=== PATIENT | male | born 1960 | race Caucasian/White ===

== ENCOUNTER 2018-02-14 13:03 | Day surgery (SDC) | payer OTHER ==
[~2018-02-14 13:03] MED LIST: ceFAZolin 2 GM/SWFI 2 GM/20 ML SYR IVP ONE
[2018-02-14] MEDS ORDERED: LIDOCAINE 1% 2 ML INJ ID PRN (13:29)
[2018-02-14] MEDS ORDERED: LR 1,000 ML IV ONE (13:29)
[2018-02-14] MEDS ORDERED: fentaNYL 100 MCG/2 ML INJ ONE ×2 (14:12→14:50)
[2018-02-14] MEDS ORDERED: BUPIVACAINE 0.5% 30 ML SDV ONE ×2 (14:14→14:47)
--- NOTE | 2018-02-14 14:16 | PDHPUP ---
History & Physical Update H&P update statement: This history and physical update is based on an assessment of the patient which was completed after admission or registration (within 24 hours), but prior to the surgery/procedure. H&P update: H&P reviewed & patient examined, no change in patient's condition since H&P completed
--- NOTE | 2018-02-14 14:29 | PDANEPAE ---
ANE History of Present Illness 57 yo male with R heel plantar fascial fibromatosis. ANE Past Medical History - Cardiovascular History Hx Hypertension: No Hx Arrhythmias: No Hx Chest Pain: No Hx Coronary Artery / Peripheral Vascular Disease: No Hx CHF / Valvular Disease: Yes Hx Palpitations: No Cardiovascular History Comment: hx of mitral regurg - had an elective repair - Pulmonary History Hx COPD: No Hx Asthma/Reactive Airway Disease: No Hx Recent Upper Respiratory Infection: No Hx Oxygen in Use at Home: No Hx Sleep Apnea: Yes Sleep Apnea Screening Result - Last Documented: Positive Pulmonary History Comment: NANO W/CPAP - Neurologic History Hx Cerebrovascular Accident: No Hx Seizures: No Hx Dementia: No - Endocrine History Hx Diabetes: No Hypothyroid: No Hyperthyroid: No Obesity: mild - Renal History Hx Renal Disorders: No - Liver History Hx Hepatic Disorders: No - Neurological & Psychiatric Hx Hx Neurological and Psychiatric Disorders: No - Cancer History Hx Cancer: No - Congenital Disorder History Hx Congenital Disorders: No - GI History GERD: no Hx Gastrointestinal Disorders: No - Other Health History Other Health History: R ft plantar fascitis - Chronic Pain History Chronic Pain: Yes (R ft) - Surgical History Prior Surgeries: mitral valve repair 2007 ANE Review of Systems Review of systems is: negative Review of Systems: - Exercise capacity METS (RN): 4 METS ANE Patient History - Allergies Allergies/Adverse Reactions: No Allergies Allergy (Verified 02/13/18 15:58) - Home Medications Home Medications: NK [No Known Home Meds] 02/13/18 [Last Taken Unknown] - NPO status NPO Since - Liquids (Date): 02/14/18 NPO Since - Liquids (Time): 12:00 NPO Since - Solids (Date): 02/14/18 NPO Since - Solids (Time): 06:30 - Anes Hx Anes Hx: no prior problems - Smoking Hx Smoking Status: Never smoked - Family Anes Hx Family Anes Hx: neg - N/A ANE Labs/Vital Signs - Vital Signs Blood Pressure: 119/79 Heart Rate: 75 Respiratory Rate: 16 O2 Sat (%): 92 Height: 198.12 cm Weight: 117.934 kg ANE Physical Exam - Airway Neck exam: FROM Mallampati Score: Class 2 Mouth exam: normal dental/mouth exam - Pulmonary Pulmonary: clear to auscultation - Cardiovascular Cardiovascular: regular rate and rhythym - ASA Status ASA Status: II ANE Anesthesia Plan Anesthesia Plan: GA w LMA Regional Anesthesia: popliteal SNB (Later popliteal sciatic nerve block placed in pre-op PSR for POPC), POPC/PSR
[2018-02-14] MEDS ORDERED: ceFAZolin 2 GM/SWFI 20 ML SYR IVP ONE (14:37)
[2018-02-14] MEDS ORDERED: fentaNYL 100 MCG/2 ML INJ IVP ONE (14:45)
[2018-02-14] MEDS ORDERED: DEXAMETHASONE 4 MG/ML VIAL ONE ×2 (14:50)
[2018-02-14] MEDS ORDERED: PROPOFOL 200 MG/20 ML VIAL ONE (14:50)
[2018-02-14] MEDS ORDERED: LIDOCAINE 2% 5 ML SDV ONE (14:50)
[2018-02-14] MEDS ORDERED: ROPIVACAINE HCL 150 MG/30 ML INJ ONE (15:40)
--- NOTE | 2018-02-14 15:56 | POSTOPPROG ---
Post Op Note Date of Operation: 02/14/18 Surgeon: Jacky Damian Manager Forms: none Anesthesiologist: Cordero Anesthesia: GET(General Endotracheal) Pre-op Diagnosis: R plantar fascitiis Post-op Diagnosis: same Indication: above Procedure: R Barbara pimentel procedure Inf/Abcess present in the surg proc area at time of surgery?: No EBL: Minimal
[2018-02-14] MEDS ORDERED: NALOXONE HCL 0.4 MG/ML INJ IVP PRN ×2 (16:11)
[2018-02-14] MEDS ORDERED: ALBUTEROL 3 ML DEYVIAL IH PRN (16:11)
[2018-02-14] MEDS ORDERED: ACETAMINOPHEN 500 MG TAB PO PRN (16:11)
[2018-02-14] MEDS ORDERED: ONDANSETRON 4 MG/2 ML VIAL IVP PRN (16:11)
[2018-02-14] MEDS ORDERED: LR 500 ML IV PRN (16:11)
[2018-02-14] MEDS ORDERED: fentaNYL 100 MCG/2 ML INJ IVP PRN (16:11)
--- NOTE | 2018-02-14 16:39 | GOP ---
[f rep st] OPERATIVE REPORT DATE OF OPERATION: 02/14/2018 SURGEON: Jacky Damian MD FIELD CROPS HARVEST MACHINE OPERATOR: None. ANESTHESIA: General with popliteal and saphenous block. PREOPERATIVE DIAGNOSIS: Right plantar fasciitis and gastroc contracture. POSTOPERATIVE DIAGNOSIS: Right plantar fasciitis and gastroc contracture. PROCEDURE PERFORMED: 1. Right Nate procedure. 2. Right [place] procedure. FINDINGS: SPECIMENS: None. ESTIMATED BLOOD LOSS: 5 mL. INDICATIONS: This is a 57-year-old male with long-going plantar fasciitis who failed conservative tr eatments which were quite extensive. I counseled him on the risks and benefits of the above interven tion. He would like to proceed. Informed consent obtained. All questions answered. He was marked preoperatively. DESCRIPTION OF PROCEDURE: He was taken to the operative suite, sterilely prepped and draped in marisel l fashion. Time-out was performed verifying the site, side, location with agreement of the team. Bl ock had been administered per Anesthesia. He was given 2 g of Ancef. Sterilely prepped and draped. Esmarch was utilized as tourniquet. It was inflated. I made a medial incision over his medial luna mary, dissected down through this to the fascia. I used a large retractor to retract the soft tissues and then performed a Nate procedure releasing the outer portion of the gastroc fascia. Obtained about 10 degrees additional dorsiflexion of his ankle. This was irrigated and closed with 2-0 Vicryl , 3-0 Quill, and Dermabond. I rupinder out the grid for the [place] procedure, about a 2 cm x 2 cm grid wi th about 5 mm between dots. I then used a 4.5 K-wire to make holes in the skin, down to the fascia t hen used the ablator, the [place], and used fluoroscopy to check the level of this and plant ar fascia each time as I went for the appropriate 0.5 seconds. I then placed him in a sterile dressi ng and a splint. He was taken to PACU in stable condition. COMPLICATIONS: None. DRAINS: None. CONDITION: Stable. /[id number]/MODL
[2018-02-14 16:56] VITALS: RESP 18; TEMP 97.5
[2018-02-14 17:23] VITALS: BP 110/72
[2018-02-14 17:25] VITALS: PULSE 74
[2018-02-14 18:00] VITALS: O2SAT 94
--- NOTE | 2018-02-20 07:40 | POSTANESTH ---
Post Anesthetic Evaluation Cardiovascular Status: Normal, Stable Respiratory Status: Normal, Stable Level of Consciousness/Mental Status: Can Participate in Eval, Mildly Sleepy, Arousable Pain Control: Adequate, Prn Tx Ordered Nausea/Vomiting Control: Adequate, Prn Tx Ordered Complications Possibly Related to Anesthesia: None Noted (PNB controlling patient's pain at this time.)
== END 2018-02-14 18:12 | disposition home or self-care (01) ==
LOC: FSGY 13:03
PROVIDERS: ATTEND Orthopaedic Surgery
PROC: 0JBQ0ZZ Excision of Right Foot Subcutaneous Tissue and Fascia, Open Approach (ICD-10-PCS; principal; 2018-02-14 14:45)
PROC: 0LSN0ZZ Reposition Right Lower Leg Tendon, Open Approach (ICD-10-PCS; principal; 2018-02-14 14:45)
DX: M72.2 Plantar fascial fibromatosis (principal); I34.0 Nonrheumatic mitral (valve) insufficiency; G47.33 Obstructive sleep apnea (adult) (pediatric); Z86.79 Personal history of other diseases of the circulatory system; Q79.6 Ehlers-Danlos syndromes
CPT/HCPCS: J0690; J1100; J2704; J2795; J3010